=== PATIENT | female | born 2000 | race African-American/Black ===

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

== ENCOUNTER 2019-02-04 20:37 | Emergency (ER) | payer OTHER ==
[2019-02-04 20:48] VITALS: BP 101/67
--- NOTE | 2019-02-04 21:50 | UC ---
General HPI - HPI Summary HPI Summary: PATIENT TAKES 150 MG SERTRALINE ONCE DAILY FOR DEPRESSION. STATES SHE HAS BEEN STABLE AND DOING WELL WITH THIS DOSE FOR OVER A YEAR. SHE WAS DOING SO WELL SHE NEGLECTED TO FOLLOW-UP WITH HER PSYCHIATRIST AT [facility] FOR THE PAST FEW MONTHS AND HER PRESCRIPTION RAN OUT. SHE WAS UNABLE TO SECURE AN APPOINTMENT UNTIL THE NEW . SHE HAS BEEN TAKING A REDUCED DOSE FOR THE PAST FEW DAYS BUT HAS BEEN FEELING SOME NAUSEA AND DIZZINESS AND IS CONCERNED THAT SHE IS HAVING WITHDRAWAL SYMPTOMS. SHE'LL BE HEADING HOME TO [facility] FOR THE HOLIDAYS IN A WEEK AND STATES SHE'LL FOLLOW-UP WITH HER PSYCHIATRIST BACK THERE AND WELL WITH [facility] WHEN SHE RETURNS IN THE NEW . - History of Current Complaint Chief Complaint: UCMedRefill Stated Complaint: RX REFILL Time Seen by Provider: 02/04/19 21:08 Hx Obtained From: Patient Hx Last Menstrual Period: early December Onset/Duration: Gradual Onset, Lasting Days Onset Severity: Mild Current Severity: Mild Pain Intensity: 4 - Allergy/Home Medications Allergies/Adverse Reactions: Allergies Allergy/AdvReac Type Severity Reaction Status Date / Time No Known Allergies Allergy Verified 02/04/19 20:48 PMH/Surg Hx/FS Hx/Imm Hx Psychological History: Anxiety, Depression - Surgical History Surgical History: None - Family History Known Family History: Positive: Non-Contributory Negative: Hypertension - Social History Alcohol Use: None Substance Use Type: None Smoking Status (MU): Never Smoked Tobacco Review of Systems All Other Systems Reviewed And Are Negative: Yes Constitutional: Positive: Negative Respiratory: Positive: Negative Cardiovascular: Positive: Negative Gastrointestinal: Positive: Nausea Neurological: Positive: Other - DIZZY Physical Exam Triage Information Reviewed: Yes Appearance: Well-Appearing, No Pain Distress, Well-Nourished Vital Signs: Initial Vital Signs Temp 96.7 F 02/04/19 20:43 Pulse 88 02/04/19 20:43 Resp 16 02/04/19 20:43 BP 101/67 02/04/19 20:43 Pulse Ox 100 02/04/19 20:43 Vital Signs Reviewed: Yes Eyes: Positive: Conjunctiva Clear ENT: Positive: Hearing grossly normal Neck: Positive: Supple Respiratory: Positive: No respiratory distress, No accessory muscle use Cardiovascular: Positive: Pulses Normal Abdomen Description: Positive: Soft Musculoskeletal: Positive: No Edema Neurological: Positive: Alert Psychological: Positive: Age Appropriate Behavior Skin: Negative: Rashes Course/Dx - Course Course Of Treatment: Meds refilled for one month. Advised to follow-up with her prescriber as soon as possible. - Diagnoses Provider Diagnosis: Medication refill Discharge ED - Sign-Out/Discharge Documenting (check all that apply): Patient Departure All imaging exams completed and their final reports reviewed: No Studies - Discharge Plan Condition: Stable Disposition: HOME Prescriptions: Sertraline* [Zoloft*] 150 mg PO DAILY #90 tab Patient Education Materials: Medicine Refill (ED) Referrals: Harshad Grajeda MD [Primary Care Provider] - 1 Week Additional Instructions: YOUR SERTRALINE HAS BEEN REFILLED FOR 30 DAYS. BE SURE TO FOLLOW-UP WITH YOUR PSYCHIATRIST AT [facility] SOON POSSIBLE WELL YOUR PSYCHIATRIST BACK HOME IN [facility] WHEN YOU RETURN FOR THE HOLIDAYS. - Billing Disposition and Condition Condition: STABLE Disposition: Home
== END 2019-02-04 21:54 | disposition home or self-care (01) ==
LOC: UCEAST 20:37
DX: Z76.0 Encounter for issue of repeat prescription (principal); F32.9 Major depressive disorder, single episode, unspecified
CPT/HCPCS: 99212; G0463